=== PATIENT | female | born 1990 | race Caucasian/White ===

== ENCOUNTER → 2023-06-29 11:21 | Outpatient (CLI) | payer OTHER, SELFPAY ==
--- NOTE | ~2023-06-29 | XR_ITS ---
EXAMINATION: XR orbits min 4V INDICATION: Ocular pain, right eye TECHNIQUE: Four views of the orbits are obtained. COMPARISON: None available FINDINGS: The paranasal sinuses appear to be well aerated. No facial fracture is identified. The nasa l septum is midline. The soft tissues are unremarkable. IMPRESSION: 1. No facial fracture identified. If there is high clinical suspicion for facial fracture, further ev aluation with CT is recommended. Reviewed, dictated and finalized at location L. IMPRESSION: 1. No facial fracture identified. If there is high clinical suspicion for facia l fracture, further evaluation with CT is recommended.
== END ==
PROVIDERS: PCP Nurse Practitioner Family; Visit Provider Nurse Practitioner Family
DX: H57.11 Ocular pain, right eye (principal)
CPT/HCPCS: 70200

== ENCOUNTER 2023-07-21 14:45 | Emergency (ER) | payer OTHER, SELFPAY ==
[2023-07-21 15:07] VITALS: BP 127/71; PULSE 93; RESP 18; TEMP 36.1; O2SAT 99
--- NOTE | 2023-07-21 15:30 | ED.URI ---
HPI - URI/Sore Throat General Chief Complaint: Upper Respiratory Infection Stated Complaint: Sore Throat,Fatigue,Cough Time Seen by Provider: 07/21/23 15:30 Source: patient, RN notes reviewed and old records reviewed Mode of arrival: ambulatory Limitations: no limitations History of Present Illness HPI Narrative: 33-year-old female presents to the [facility] with complaints of a sore throat, fatigue and cough since Monday, 4 days. Denies nausea vomiting or diarrhea. Denies chest pain or abdominal pain. To kids tested positive for strep today. Related Data Home Medications Medication Instructions Recorded Confirmed escitalopram oxalate 10 mg tablet 10 mg PO DAILY 06/26/23 07/21/23 multivitamin 1 tablet PO DAILY 06/26/23 07/21/23 Allergies Allergy/AdvReac Type Severity Reaction Status Date / Time No Known Allergies Allergy Verified 07/21/23 15:33 Review of Systems Review of Systems: All systems reviewed & are unremarkable except as noted in HPI and below Constitutional: Constitutional: Reports as per HPI, Reports fatigue and Reports fever(s) Eyes: Eyes: Reports no additional eye complaints ENT: Reports as per HPI and Reports sore throat Cardiovascular: Cardiovascular: Reports no additional cardiovascular complaints, Denies chest pain and Denies dyspnea Respiratory: Respiratory: Reports no additional respiratory complaints, Denies chest congestion, Denies cough and Denies dyspnea Gastrointestinal: Gastrointestinal: Reports no additional gastrointestinal complaints, Denies abdominal pain, Denies nausea and Denies vomiting Musculoskeletal: Musculoskeletal: Reports no additional musculoskeletal complaints Integumentary/Breasts: Skin/Breast: Reports system reviewed and no additional complaints, except as docu Neurologic: Reports system reviewed and no additional complaints, except as documented Psychiatric: Psychiatric: Reports no additional psychiatric complaints Allergic/Immunologic: Allergic/Immunologic: Reports no additional allergic/immunologic complaints [facility] Past Medical History Medical History Anxiety BMI 27.0-27.9,adult Dizziness Elevated fasting glucose Encounter to establish care Fall (on) (from) other stairs and steps, initial encounter Nausea Pain of right orbit Surgical History Surgical History Hx of emergency section Family History Family History Father Alcohol abuse Diabetes mellitus Hypertension Grandparent Colon cancer Grandparent Diabetes mellitus Social History Social History Smoking status: Never smoker Alcohol intake: current Alcohol use details: Occasionally Substance use: current Substance use type: marijuana Comments At the time of my signature, I reviewed and agree with the nursing past medical, surgical, social, and family history. There is no relevant family history pertinent to the patient complaint. Exam Const: General: cooperative, healthy appearing, comfortable, no acute distress, well developed, alert and well nourished Nutritional Appearance: well nourished Orientation/consciousness: patient oriented x3 Limitations: no limitations HENMT: Head: normal to inspection Ears: hearing grossly normal bilaterally, external ears normal, TM's normal bilaterally and EAC's normal Face/Nose/Sinus: Normal external nose present, Normal nares present, Normal nasal mucous membranes and turbinates present and normal facial exam Face and sinus: normal facial exam Mouth: Yes Normal oral and palatal mucosa present, Yes lip normal and Yes moist mucous membranes Throat: posterior oropharynx normal, uvula midline and abnormal tonsil bilateral erythema, exudates and hypertrophy 3+ Eyes: General: appearance normal, both eyes and all related
== END 2023-07-21 15:58 | disposition home or self-care (01) ==
PROVIDERS: Emergency Provider Nurse Practitioner; PCP Nurse Practitioner Family
DX: J02.0 Streptococcal pharyngitis (principal); F12.90 Cannabis use, unspecified, uncomplicated; F41.9 Anxiety disorder, unspecified
CPT/HCPCS: 87880; 99213; G0463

== ENCOUNTER 2024-02-06 10:58 | Emergency (ER) | payer OTHER, SELFPAY ==
--- NOTE | ~2024-02-06 | CT_ITS ---
EXAMINATION: CT abdomen pelvis wo con DATE: 02/06/2024 11:58 INDICATION: Left flank pain TECHNIQUE: Computed tomography (CT) of the abdomen and pelvis was performed without intravenous contr ast. The dose-length product was 222.93 mGy-cm. Automated exposure control and iterative reconstruction technique were employed. COMPARISON: None. FINDINGS: Heart size normal. No significant pleural or pericardial effusion. Small fat-containing umb ilical hernia. The liver, spleen, pancreas, adrenal glands and kidneys are unremarkable. Gallbladder is present. No abnormal pelvic masses or fluid collections. No free air or free fluid. No acute osseo us abnormality. IMPRESSION: 1. No acute abdominal abnormality. Nonobstructive bowel gas pattern. Reviewed, dictated and finalized at location L.
[2024-02-06 11:05] VITALS: BP 126/86; PULSE 73; RESP 16; TEMP 36.3; O2SAT 100
[2024-02-06 11:35] LABS: Basophils Percent Auto 0.3 % (0.2-1.2); Eosinophils Absolute Auto 0.2 K/mm3 (0-0.3); Eosinophils Percent Auto 2.2 % (0-4.4); Hematocrit 44.5 % (37.0-47.0); Immature Granulocyte Absolute 0.02 K/mm3 (0.00-0.031); Immature Granulocyte Percent A 0.3 % (0-0.5); Lymphocytes Absolute Auto 1.52 K/mm3 (0.9-3.2); Mean Corpuscular HGB Conc 33.7 g/dl (32-36); Mean Corpuscular Hemoglobin 31.6 pg (26-34); Mean Corpuscular Volume 93.7 fl (80-100); Mean Platelet Volume 9.5 fl (7.4-10.4); Monocytes Absolute Auto 0.4 K/mm3 (0.1-0.6); Monocytes Percent Auto 4.9 % (2.6-8.5); Neutrophils Absolute Auto 5.5 K/mm3 (1.3-6.7); Neutrophils Percent Auto 72.3 % (45.5-73.1); Platelet Count Result 272 k/mm3 (150-375); Red Blood Count 4.75 M/mm3 (4.2-5.4); Red Cell Distribution Width 13.7 % (11.5-14.5); White Blood Count 7.6 K/mm3 (4.5-10.0)
[2024-02-06] MEDS: KETOROLAC 15 MG/ML VIAL (*BKC) IV PUSH (11:44)
[2024-02-06 11:45] LABS: Alanine Aminotransferase 14 U/L (6-35); Albumin Level 4.3 g/dL (3.5-5.1); Alkaline Phosphatase 58 U/L (38-126); Anion Gap 5 mmol/L (4-12); Aspartate Amino Transferase 23 U/L (14-36); Bilirubin,Total 0.7 mg/dL (0.2-1.3); Blood Urea Nitrogen 15 mg/dL (7-17); Calcium 9.9 mg/dL (8.4-10.2); Carbon Dioxide 27 mmol/L (22-30); Chloride 103 mmol/L (98-107); Estimated CRCL calculation 77 ml/min; Estimated Glomerular Filt Rate > 60; Glucose 93 mg/dL (65-110); Sodium 135 mmol/L (137-145)
[2024-02-06] MEDS: SODIUM CHLORIDE 0.9% IV 1,000 ML 999 ML IV CONT (11:45)
[2024-02-06 11:57] LABS: Appearance Urine Clear (Clear); Color Urine Yellow (Yellow); Glucose Urine UA Negative (Negative); Protein Urine Negative (Negative); pH Urine 8.5 (5.0-9.0)
[2024-02-06 11:58] LABS: Add Urine Microscopic? YES; Bilirubin Urine Negative (Negative); Blood Urine Trace-intact (Negative); Ketones Urine Negative (Negative); Leukocyte Esterase Ur Negative LEU/UL (Negative); Nitrate Urine Negative (Negative); Urobilinogen Urine 0.2 mg/dL (<2.0)
--- NOTE | 2024-02-06 12:03 | PC.NURSE ---
Agree with assessments by Rosey Vo rehab nursing tech.
[2024-02-06 12:04] LABS: Bacteria Urine None Seen /hpf; Non Pathogenic Casts 0-2; RBC Urine 0-2 /hpf (0-2); Squamous Epithelial Cell Urine None Seen /hpf (Few); WBC Urine 0-5 /hpf (0-3)
--- NOTE | 2024-02-06 12:10 | ED.GENADULT ---
HPI - General Adult General Chief complaint: Urogenital-Female Stated complaint: back pain Time Seen by Provider: 02/06/24 11:29 Source: patient Mode of arrival: ambulatory Limitations: no limitations History of Present Illness HPI narrative: 33-year-old with a history of kidney stone present to the ER with a left flank pain radiating into left lower abdomen which started this morning. Patient states that she was extremely nauseated , took Zofran which helped with the nausea is still continues to have pain. She denies any blood in her urine. No history of fever or chills. Onset (ago): hour(s) (3) Location: back Severity: moderate Quality: aching Pain Consistency: constant Relieving factors: none Exacerbating factors: none Associated symptoms: denies other symptoms Related Data Allergies Allergy/AdvReac Type Severity Reaction Status Date / Time No Known Allergies Allergy Verified 02/06/24 11:44 Review of Systems Review of Systems: All systems reviewed & are unremarkable except as noted in HPI and below Constitutional: Constitutional: Reports no additional constitutional complaints Eyes: Eyes: Reports no additional eye complaints ENT: Reports system reviewed and no additional complaints, except as documented Cardiovascular: Cardiovascular: Reports no additional cardiovascular complaints Respiratory: Respiratory: Reports no additional respiratory complaints Gastrointestinal: Gastrointestinal: Reports as per HPI Musculoskeletal: Musculoskeletal: Reports as per HPI Neurologic: Reports system reviewed and no additional complaints, except as documented Exam Narrative: GENERAL: Well-appearing, well-nourished, and in no acute distress. HEAD: Normocephalic, atraumatic. EYES: PERRLA and EOMI. ENT: Nares clear, no rhinorrhea or epistaxis. Mucous membranes moist. NECK: Supple. CHEST: Clear to auscultation. No respiratory distress. HEART: Regular rate and rhythm. No murmur heard. Normal peripheral pulses. ABDOMEN: Soft, nontender, nondistended, normal active bowel sounds. EXTREMITIES: Normal range of motion. No edema. SKIN: Warm, dry, no rash. NEURO: No focal deficits. Alert and oriented x3. PSYCH: Normal mood and affect. Course Course Emergency Course: Notified patient about her as lab work, CT findings. Her pain is much improved with the IV Toradol. Advised him to take ibuprofen or Tylenol for pain as needed cause of her flank pain is unknown at this time. Vital Signs Vital signs: Vital Signs Temperature 36.3 C L 02/06/24 11:05 Pulse Rate 73 02/06/24 11:05 Respiratory Rate 16 02/06/24 11:05 Blood Pressure 126/86 02/06/24 11:05 Pulse Oximetry 100 02/06/24 11:05 Oxygen Delivery Room Air 02/06/24 11:05 Temperature 36.3 C L 02/06/24 11:05 Pulse Rate 73 02/06/24 11:05 Respiratory Rate 16 02/06/24 11:05 Blood Pressure 126/86 02/06/24 11:05 Pulse Oximetry 100 02/06/24 11:05 Oxygen Delivery Room Air 02/06/24 11:05 Medical Decision Making Vital Signs Vital Signs: Vital Signs Temperature 36.3 C L 02/06/24 11:05 Pulse Rate 73 02/06/24 11:05 Respiratory Rate 16 02/06/24 11:05 Blood Pressure 126/86 02/06/24 11:05 Pulse Oximetry 100 02/06/24 11:05 Oxygen Delivery Room Air 02/06/24 11:05 Temperature 36.3 C L 02/06/24 11:05 Pulse Rate 73 02/06/24 11:05 Respiratory Rate 16 02/06/24 11:05 Blood Pressure 126/86 02/06/24 11:05 Pulse Oximetry 100 02/06/24 11:05 Oxygen Delivery Room Air 02/06/24 11:05 Lab Data 02/06/24 11:27 02/06/24 11:27 Labs: Lab Results 02/06/24 02/06/24 Range/Units 11:27 11:33 WBC 7.6 (4.5-10.0) K/mm3 RBC 4.75 (4.2-5.4) M/mm3 Hgb 15.0 (12.0-15.0) g/dL Hct 44.5 (37.0-47.0) % MCV 93.7 (80-100) fl MCH 31.6 (26-34) pg MCHC 33.7 (32-36) g/dl RDW 13.7 (11.5-14.5) % Plt Count 272 (150-375) k/mm3 MPV 9.5 (7.4-10.4) fl I
[2024-02-06 12:51] VITALS: BP 133/84; PULSE 91; RESP 20; TEMP 36.9; O2SAT 100
--- NOTE | 2024-02-06 12:52 | PC.NURSE ---
when walking into room to discharge pt they became teary eyed and started yelling that we did nothing to help them. pt states they have a stone and just cant see it. I offered pt to stay to run further tests if they would like and pt declined.
== END 2024-02-06 12:54 | disposition home or self-care (01) ==
PROVIDERS: Emergency Provider Family Medicine; PCP Nurse Practitioner Family
DX: M54.50 Low back pain, unspecified (principal)
CPT/HCPCS: 36415; 74176; 80053; 81001; 81025; 85025; 96361; 96374; 99284; J1885; J7030

== ENCOUNTER 2024-04-06 15:07 | Emergency (ER) | payer OTHER, SELFPAY ==
[2024-04-06 15:20] VITALS: BP 123/86; PULSE 76; RESP 18; TEMP 36.6; O2SAT 98
--- NOTE | 2024-04-06 16:31 | ED.URI ---
HPI - URI/Sore Throat General Chief Complaint: Upper Respiratory Infection Stated Complaint: Sore Throat and Cough Time Seen by Provider: 04/06/24 15:50 Source: patient and RN notes reviewed Mode of arrival: ambulatory Limitations: no limitations History of Present Illness HPI Narrative: Patient presents today complaining of 4 day history of cough, sore throat, chills, fatigue, worse over the last 2 days. Currently rates her pain 3/10 and has been taking ibuprofen and allergy medicine without much relief. She has a teenager at home with severe sore throat that she believes has strep throat. Two other children in with her today with similar symptoms. Related Data Home Medications Medication Instructions Recorded Confirmed buspirone 5 mg tablet mg 04/06/24 dextroamphetamine-amphetamine ER PO 04/06/24 10 mg 24hr capsule,extend release paroxetine HCl 20 mg tablet mg PO 04/06/24 Allergies Allergy/AdvReac Type Severity Reaction Status Date / Time No Known Allergies Allergy Verified 04/06/24 15:28 Review of Systems Review of Systems: CONSTITUTIONAL: Denies body aches, fever, or sweats.+ chills, fatigue EYES: Denies visual changes, redness, or discharge. ENT: Denies rhinorrhea, congestion, or otalgia.+ sore throat CARDIOVASCULAR: Denies chest pain, palpitations, or edema. RESPIRATORY: Denies dyspnea.+ cough GASTROINTESTINAL: Denies abdominal pain, nausea, vomiting, or diarrhea. GENITOURINARY: Denies dysuria or hematuria. SKIN: Denies rash, itching, or wounds. MUSCULOSKELETAL: Denies back pain, joint pain, or myalgia. NEUROLOGIC: Denies headache, numbness, tingling, or weakness. PSYCH: Denies depression or anxiety. PMFSH Comments At time of signature, I have reviewed and agree with nursing past medical, surgical, social and family history unless otherwise noted. Please see nursing chart for further information. There is no relevant family history pertinent to the presenting complaint Exam Narrative: GENERAL: Well-appearing, well-nourished, and in no acute distress. HEAD: Normocephalic, atraumatic. EYES: EOMI. No redness or drainage. Conjunctivae normal. ENT: Mucous membranes pink and moist. Nares clear. No rhinorrhea. TMs normal bilaterally. Throat erythematous. Tonsils 3+ without exudate Uvula midline. NECK: Normal AROM. Supple. No lymphadenopathy. CHEST: No respiratory distress. Clear to auscultation. HEART: Regular rate and rhythm. No murmur appreciated. EXTREMITIES: Normal range of motion. No edema. SKIN: Warm, dry, no rash. Capillary refill normal. Normal skin turgor. NEURO: No focal deficits. Alert and oriented x3. Gait steady. PSYCH: Normal affect. No signs of depression or anxiety. Course Course Level of Care: Express Care Visit Vital Signs Vital signs: Vital Signs Temperature 97.8 F 04/06/24 15:20 Pulse Rate 76 04/06/24 15:20 Respiratory Rate 18 04/06/24 15:20 Blood Pressure 123/86 04/06/24 15:20 Pulse Oximetry 98 04/06/24 15:20 Oxygen Delivery Room Air 04/06/24 15:20 Temperature 97.8 F 04/06/24 15:20 Pulse Rate 76 04/06/24 15:20 Respiratory Rate 18 04/06/24 15:20 Blood Pressure 123/86 04/06/24 15:20 Pulse Oximetry 98 04/06/24 15:20 Oxygen Delivery Room Air 04/06/24 15:20 Reviewed MDM - URI/Sore Throat MDM Narrative Medical decision making narrative: Rapid strep positive. Prescription for amoxicillin sent to pharmacy. Anticipatory guidance given. Differential Diagnosis Differential diagnosis: Likely upper respiratory infection, viral infection, pharyngitis and other (Strep throat) Lab Data Attestation: I reviewed the patient's lab results. Labs: Strep Screen Positive Group A Strep *(Reference Range: Negative)* Critical Care Time Critical Care Time Critical Care Time: No Discharge Plan Discharge Clinical Impression: Strep throat Patient Dis
== END 2024-04-06 16:23 | disposition home or self-care (01) ==
PROVIDERS: Emergency Provider Nurse Practitioner; PCP Nurse Practitioner Family
DX: J02.0 Streptococcal pharyngitis (principal)
CPT/HCPCS: 87880; 99213; G0463

== ENCOUNTER → 2024-09-18 11:14 | Outpatient (CLI) | payer OTHER, SELFPAY ==
--- NOTE | ~2024-09-18 | XR_ITS ---
Left Shoulder Technique: AP and axillary views were obtained. Clinical History: Pain Findings: No fracture or dislocation is seen. Osseous alignment is anatomic. The glenohumeral and acr omioclavicular joint spaces are preserved. Soft tissues are unremarkable. Impression: Unremarkable left shoulder radiographs. Reviewed, dictated and finalized at [facility]. [employer] Impression: Unremarkable left shoulder radiographs.
== END ==
LOC: EXPTRAD 11:15
PROVIDERS: PCP Nurse Practitioner Family; Visit Provider Nurse Practitioner Family
DX: M25.512 Pain in left shoulder (principal)
CPT/HCPCS: 73030

== ENCOUNTER 2024-09-26 08:09 | Outpatient (CLI) | payer OTHER, SELFPAY ==
--- NOTE | 2024-10-15 20:04 | WPDHOMESLEEP ---
Sleep Study - Home Unattended Date of Study: 09/26/24 Ordering Provider: Sharonda Gonzalez NP Interpreting Provider: Nan Myers DO Home Sleep Study Type: Watch PAT Height: 1.6 m Weight: 78.018 kg Body Mass Index: 30.4 Neck Circumference (inches): 14.5 [place]: 8 Reason for Sleep Study Snoring, daytime hypersomnia Sleep History The patient is a 34-year-old female had a sleep study ordered by her primary care for evaluation of sleep apnea. The patient admits to snoring loudly, trouble maintaining sleep, interruptions in breathing while asleep and excessive daytime sleepiness. She admits to choking and gasping while sleeping. She denies having trouble breathing while on her back. She denies morning headaches. She admits to a dry or sore mouth/ throat in the morning. She denies nocturnal heartburn. She admits to nocturia. She denies having difficulty falling asleep. She denies hypnotic or sedative use. She denies feeling anxious about sleep. She does feel tired or sleepy during the day. She feels unrefreshed in the morning. She denies having the urge to fall asleep during the day. She does feel drowsy while driving. She denies sleep paralysis, cataplexy and hypnagogic / hypnopompic hallucinations. She admits to clenching or grinding her teeth. She admits to kicking or jerking her legs excessively. She does admit to having a restless feeling in her legs. She does have but urge to move her legs that gets better with activity and worse with rest. It only occurs in the evening. It does cause her concerns. She goes to bed at 9:30 p.m. on weekdays and at 10:00 p.m. on the weekends. It takes her 30 minutes to fall asleep during the week and 90 minutes to fall asleep on the weekends. She typically gets 8 hours of sleep per night. Her sleep is somewhat restorative on the days off. She denies taking any planned naps. She denies dream enactment behavior. She denies sleep walking. She consumes more than 5 caffeinated beverages per day. She denies alcohol and tobacco use. She denies exercising on a regular basis. [facility] Past Medical History Medical History Acute sinusitis ADHD Anxiety Apneic episode BMI 27.0-27.9,adult BMI 31.0-31.9,adult BMI 32.0-32.9,adult Bronchitis COVID-19 Depression Dermatillomania Dizziness Elevated fasting glucose Encounter to establish care Fall (on) (from) other stairs and steps, initial encounter Hypersomnia Left shoulder pain Nausea Pain of right orbit Rash and nonspecific skin eruption Snoring Surgical History Surgical History Hx of emergency section Family History Family History Father Alcohol abuse Diabetes mellitus Hypertension Grandparent Colon cancer Grandparent Diabetes mellitus Social History Social History Smoking status: Never smoker Alcohol intake: current Alcohol use details: Occasionally Substance use: current Substance use type: marijuana and crack/cocaine Do You Feel Safe in your Home?: Yes Lack of Transportation: No Lack of Food: Never True Current Housing: I Have Housing Concerned About Future Housing: No Difficulty Paying Gas/Electric Bills: No Difficulty Paying for Meds: No Currently Unemployed: YES Education: Trade/Vocational Certificate Difficulty w/ Childcare or Family Care: No Medications Home Medications Medication Instructions Recorded Confirmed Type clotrimazole 1 % topical cream 1 applic topical Q12H #30 grams 12/26/23 09/18/24 Rx mupirocin 2 % topical ointment 1 applic topical BID #15 grams 12/26/23 09/18/24 Rx triamcinolone acetonide 0.1 % 1 applic topical BID itching #30 12/26/23 09/18/24 Rx topical cream grams fluticasone propionate 50 1 spray intranasal BID #16 grams 02/28/24 09/18/24 Rx mcg/actuation nasal spray,suspension (Flonase Allergy Relief) aripiprazole 5 mg tablet 5 mg PO DAILY 08/02/24 09/18/24 History drospirenone 3 mg-ethinyl 1 tablet PO DAILY #112 tabs 08/20/24 09/18/24 Rx estradiol 0.03 mg tablet (Stacy (28)) Sleep Procedure The sleep study was completed using [employer] a technically adequate device with seven channels: peripheral arterial tone, actigraphy, body position, snore, respiratory movement, pulse oximetry, sleep staging, and heart rate. Prior to using the device, the patient received verbal and written instructions for its application and was provided with the help desk phone number for additional telephonic instruction with 24-hour availability of qualified personnel to answer questions. The study was scored using CMS guidelines. Sleep Architecture The total recording time is 7 hrs, 0 min. The total sleep time is 5 hrs, 54 min. Sleep latency is 26 minutes. REM latency is 34 minutes. The patient had 7 episodes of waking. Sleep architecture shows 20.5% deep sleep, 55.9% light sleep, and (as % Total Sleep Time) showed NREM (Light 55.9%; Deep 20.5%), and a 23.6% stage REM. The patient spent 63.6% of total sleep time in the supine position. Sleep efficiency was 84.29. Respiratory Analysis The overall AHI (pAHI 4%:) is 1.8. The central AHI is 0.2. The AHI was 1.2 in NREM and 3.6 in REM sleep. The AHI was 2.0 in Supine and 1.4 in Non-supine sleep. Percent of Juarez Gallegos respirations is 0.0. Oximetry Data The oxygen desaturation index (ABRAM 4%:) is 1.8. The mean saturation is 96%, and the lowest saturation is 88%. Time spent with saturation < 88% is 0.0 minutes. Snoring Profile Snoring average intensity is 41 dB. The patient snored above 45 decibels for 19.7 minutes, 5.6% of sleep time. Cardiac Profile The average pulse rate is 65 beats per minutes. The lowest pulse rate is 40 bpm. The highest pulse rate reported is 124 bpm. Suspected Afib total duration is 0:00:43, (h:m:sec). The longest Afibevent duration is 0:00:43. A-Fib events < 60 seconds may be artifact. Premature beats occur <0.1 per minute. Assessment and Plan Assessment and Plan (1) Snoring: Code(s): R06.83 - Snoring Status: Acute Assessment and Plan: The patient had an overall AHI of 1.8 with desaturation down to 88%. This is not consistent with sleep disordered breathing. If there are still concerns for a sleep disorder, I recommend the patient have a split study with the use of a hypnotic to ensure we obtain enough sleep data. Data The data obtained during this sleep study is adequate for interpretation. Certification This sleep study has been reviewed by a board certified sleep medicine physician.
[2024-10-15 20:05] VITALS: BMI 30.4
== END 2024-09-27 12:24 | disposition home or self-care (01) ==
LOC: ANHCSM 08:10
PROVIDERS: PCP Nurse Practitioner Family; Visit Provider Nurse Practitioner Family
DX: R06.83 Snoring (principal); G47.10 Hypersomnia, unspecified; R06.81 Apnea, not elsewhere classified
CPT/HCPCS: 95800